=== PATIENT | male | born 1965 | race Hispanic/Latino ===

== ENCOUNTER 2020-12-05 22:27 | Emergency (ER) | payer OTHER | END 2020-12-05 23:57 | disposition home or self-care (01) | LOC: MADERS 22:27 | DX: M54.5 Low back pain (principal); M54.6 Pain in thoracic spine; V43.52XA Car driver injured in collision with other type car in traffic accident, initial encounter; Y92.410 Unspecified street and highway as the place of occurrence of the external cause | CPT/HCPCS: 72072; 72100; 72220 ==

== ENCOUNTER 2020-12-16 09:21 | Outpatient (CLI) | payer OTHER | END 2020-12-16 09:22 | disposition home or self-care (01) | LOC: MADRAD 09:21 | PROVIDERS: ATTEND Family Medicine | DX: S72.009A Fracture of unspecified part of neck of unspecified femur, initial encounter for closed fracture (principal) ==